=== PATIENT | male | born 1940 | race Hispanic/Latino ===

== ENCOUNTER 2018-10-23 18:24 | Inpatient (IN) | payer MEDICARE ==
[2018-10-23 19:11] LABS: Hematocrit 38.8 % (35.5-45.6); Mean Corpuscular HGB Conc 33 % (32-34); Mean Corpuscular Volume 93 fl (84-94); Platelet Count 164 K/mm3 (140-440); Red Blood Count 4.15 M/mm3 (3.65-5.03); Red Cell Distribution Width 15.4 % (13.2-15.2)
[2018-10-23 19:26] LABS: INR 1.19 (0.87-1.13)
[2018-10-23 19:27] LABS: Partial Thromboplastin Time 29.4 Sec. (24.2-36.6)
[2018-10-23] MEDS ORDERED: NACL 0.9% 1000 ML IV ONE (19:33)
[2018-10-23] MEDS ORDERED: CLEOCIN 600 MG/50 mL 600 MG/50 ML BAG IV SCH (19:33)
[2018-10-23 19:34] LABS: Alanine Aminotransferase 18 units/L (7-56); Albumin 3.2 g/dL (3.9-5); BUN/Creatinine Ratio 13; Blood Urea Nitrogen 14 mg/dL (9-20); Calcium 8.3 mg/dL (8.4-10.2); Hemolysis Index 10
[2018-10-23] MEDS ORDERED: NACL 0.9% 1000 ML 2,000 ML ONE (19:34)
--- NOTE | 2018-10-23 19:40 | Emergency Department Report ---
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 Patient recently had chemotherapy and normally will get some nausea and headache after the sessions however his right arm has "swell and has warmth and erythema. Patient has fallen several times in the last several weeks and has some healing scabs may be possible source of infection. Patient denies any vomiting diarrhea. Patient states he has a chronic cough that is unchanged from his previous. Patient states he has mild shortness of breath but is denying any productive cough or chest pain. Location: upper extremity (right) Severity scale (0 -10): 7 - Related Data Allergies Allergy/AdvReac Type Severity Reaction Status Date / Time No Known Allergies Allergy Verified 10/23/18 18:39 ED Review of Systems ROS: Stated complaint: SOB/FLU LIKE SYMPTOMS Other details as noted in HPI Comment: All other systems reviewed and negative ED Past Medical Hx - Past Medical History Previous Medical History?: Yes Hx Hypertension: Yes Hx Deep Vein Thrombosis: Yes (right leg) Hx of Cancer: Yes (prostate with mets to bone) Hx Kidney Stones: Yes Additional medical history: high cholesterol - Surgical History Past Surgical History?: Yes Hx Open Heart Surgery: Yes (CABG x3) Hx Appendectomy: Yes Additional Surgical History: right knee replacement, bilateral hip replacement - Social History Smoking Status: Former Smoker Substance Use Type: None ED Physical Exam - General Limitations: No Limitations General appearance: alert (pleasant), in no apparent distress - Head Head exam: Present: atraumatic, normocephalic - Eye Eye exam: Present: normal appearance, PERRL, EOMI - ENT ENT exam: Present: mucous membranes moist - Neck Neck exam: Present: normal inspection - Respiratory Respiratory exam: Present: normal lung sounds bilaterally. Absent: respiratory distress, wheezes, rales, rhonchi, chest wall tenderness, accessory muscle use - Cardiovascular Cardiovascular Exam: Present: normal rhythm, tachycardia, normal heart sounds. Absent: systolic murmur, diastolic murmur, rubs, gallop - GI/Abdominal GI/Abdominal exam: Present: soft, normal bowel sounds. Absent: distended, tenderness, guarding, rebound, rigid - Rectal Rectal exam: Present: deferred - Extremities Exam Extremities exam: Present: normal inspection, tenderness, joint swelling (patient's right upper extremity shows some warmth and erythema and induration to the skin from the mid upper arm to the wrist. This is nearly circumferential. There are also some large scabbed wounds present to have an upper lip drainage.) - Back Exam Back exam: Present: normal inspection - Neurological Exam Neurological exam: Present: alert, oriented X3 - Psychiatric Psychiatric exam: Present: normal affect, normal mood - Skin Skin exam: Present: warm, dry, intact, normal color. Absent: rash ED Course Vital Signs 10/23/18 10/23/18 10/23/18 18:30 19:40 20:01 Temperature 98.9 F Pulse Rate 98 H Respiratory 24 18 Rate Blood Pressure 88/56 106/64 O2 Sat by Pulse 94 96 Oximetry 10/23/18 20:16 Temperature Pulse Rate 97 H Respiratory 25 H Rate Blood Pressure 106/64 O2 Sat by Pulse Oximetry - Reevaluation(s) Reevaluation #1: 10/23/18 19:39 Patient is being sepsis protocol at this time. Patient's given a dose of clindamycin and will be hydrated. Labs will be interpreted once they have resulted. ED Medical Decision Making - Lab Data Result diagrams: 10/23/18 19:01 10/23/18 19:01 - EKG Data -: EKG Interpreted by Ia - EKG Data 10/23/18 19:39 EKG shows atrial fibrillation with a rate of 100. The axis is leftward intervals are otherwise normal. There is no ST segment elevations or depressions. Patient does show evidence of a right bundle branch block and a left anterior fascicular block. Time of interpretation is 1914 - Medical Decision Making Patient is a 78-year-old male who is on chemotherapy for prostate cancer was coming in for weakness headache as well as cellulitis to the right upper extremity. Patient laboratory studies are relatively unremarkable however because of the extensive nature of the cellulitis and the patient's immunocompromise state with the chemotherapy do believe it is warranted to at [facility] keep the patient for IV antibiotics. Patient's physician also is concerned that there may be a clot in his arm and DOPPLER CAN be done in the morning. Critical care attestation.: If time is entered above; I have spent that time in minutes in the direct care of this critically ill patient, excluding procedure time. ED Disposition Clinical Impression: Cellulitis Disposition: OP ADMIT IP TO THIS HOSP Is pt being admited?: Yes Does the pt Need Aspirin: No Condition: Stable Time of Disposition: 21:06
--- NOTE | 2018-10-23 19:56 | XRay Report ---
FINAL REPORT EXAM: XR CHEST ROUTINE 2V HISTORY: Shortness of breath TECHNIQUE: Two view chest PA and lateral PRIORS: None. FINDINGS: Exam is technically limited. The PA views are overpenetrated. Within the limits of the study the card iac and mediastinal contours are unremarkable. Sternotomy wires and surgical clips are noted. No foca l pulmonary infiltrate is identified. No pleural fluid collection seen. Pulmonary vasculature is unr emarkable. IMPRESSION: Technically limited exam No acute abnormality seen
[2018-10-23 21:02] LABS: Band Neutrophils # (Manual) 0.1 K/mm3; Basophils % (Manual) 0 % (0.0-1.8); Eosinophils % (Manual) 0 % (0.0-4.3); Total Cells Counted 100
[2018-10-23 21:03] LABS: Anisocytosis 1+; Poikilocytosis 1+
[2018-10-23 21:04] LABS: Giant Platelets Few; Ovalocytes 1+; Platelet Estimate Consistent w Auto; Tear Drop Cells Few
[2018-10-23] MEDS ORDERED: ULTRAM PO ONE (21:07)
[2018-10-23] MEDS ORDERED: SODIUM CHLORIDE FLUSH SYRINGE 10 ML IV PRN (21:44)
[2018-10-23] MEDS ORDERED: ZOFRAN IV PRN (21:44)
[2018-10-23] MEDS ORDERED: TYLENOL PO PRN (21:44)
--- NOTE | 2018-10-23 21:50 | History and Physical Report ---
History of Present Illness Date of examination: 10/23/18 History of present illness: 78-year-old male with a history of metastatic prostate cancer, hypertension, hyperlipidemia, coronary artery disease comes to emergency room complaining of nausea, chills, low-grade fever and was disoriented, although the symptoms start ed this morning. Daughter at bedside state that the patient obtain a shock from his oncologist on Thursday, they called the oncologist who state that the symptoms are secondary to the medication given. Patient also woke up this morning and found that the inner right arm was red and tender Review of systems Constitutional: no weight loss, chills Ears, eyes, nose, mouth and throat: no nasal congestion, no nasal discharge, no sinus pressure, no vision change, no red eye. Neck: No neck pain or rigidity. Cardiovascular: no palpitations, chest pain Respiratory: no cough, shortness of breath Gastrointestinal: no hematochezia, abdominal pain Genitourinary : no frequency , no hematuria Musculoskeletal: no joint swelling or muscle ache Integumentary: no rash, no pruritis Neurological: no parathesias, no focal weakness Endocrine: no cold or heat intolerance, no polyuria or polydipsia Hematologic/Lymphatic: no easy bruising, no easy bleeding, no gland swelling Allergic/Immunologic: no urticaria, no angioedema. PAST MEDICAL HISTORY: metastatic prostate cancer, hypertension, hyperlipidemia, coronary artery disease PAST SURGICAL HISTORY: CABG, bilateral hip, knee SOCIAL HISTORY: Denies alcohol, drugs, tobacco FAMILY HISTORY: Hypertension Medications and Allergies Allergies Allergy/AdvReac Type Severity Reaction Status Date / Time No Known Allergies Allergy Verified 10/23/18 18:39 Home Medications Medication Instructions Recorded Confirmed Last Taken Type Abiraterone Acetate [Zytiga] 250 mg PO QAM 10/23/18 10/23/18 Unknown History Amlodipine Besylate [Norvasc] 5 mg PO QDAY 10/23/18 10/23/18 Unknown History Aspirin 325 mg PO QDAY 10/23/18 10/23/18 Unknown History AtorvaSTATin [Lipitor] 40 mg PO QHS 10/23/18 10/23/18 Unknown History Escitalopram [Lexapro] 10 mg PO DAILY 10/23/18 10/23/18 Unknown History Losartan [Cozaar] 100 mg PO QDAY 10/23/18 10/23/18 Unknown History Metoprolol Xl [Metoprolol 50 mg PO QDAY 10/23/18 10/23/18 Unknown History SUCCINATE ER TAB] Virgie-3 Fatty Acids/Fish Oil [Fish 1,000 mg PO QDAY 10/23/18 10/23/18 Unknown History Oil] Ondansetron (Nf) [Zofran TAB] 4 mg PO Q8HR PRN 10/23/18 10/23/18 Unknown History predniSONE [Prednisone] 5 mg PO BID 10/23/18 10/23/18 Unknown History Active Meds: Active Medications Acetaminophen (Tylenol) 650 mg PO Q4H PRN PRN Reason: Pain MILD(1-3)/Fever >100.5/NORMAN Enoxaparin Sodium (Lovenox) 30 mg SUB-Q QDAY GIO Clindamycin HCl (Cleocin 600 Mg/50 Ml) 600 mg in 50 mls @ 100 mls/hr IV Q8HR GIO; Protocol Last Admin: 10/23/18 20:17 Dose: 100 mls/hr Documented by: Piperacillin Sod/Tazobactam Sod (Zosyn/Ns 4.5gm/100ml) 4.5 gm in 100 mls @ 200 mls/hr IV Q8HR GIO; Protocol Ondansetron HCl (Zofran) 4 mg IV Q4H PRN PRN Reason: Nausea And Vomiting Sodium Chloride (Sodium Chloride Flush Syringe 10 Ml) 10 ml IV BID GIO Sodium Chloride (Sodium Chloride Flush Syringe 10 Ml) 10 ml IV PRN PRN PRN Reason: LINE FLUSH Exam - Physical Exam Narrative exam: General Apperance: The patient lying in bed, breathing comfortable HEENT: Normocephalic, atraumatic. Pupils equally round and reactive to light, EOMI, no sclericterus or JVD or thyromegaly or nodule. , no carotid bruit, mucous membranes moist, no exudate or erythema Heart: S1-S2, regular is rhythm Lungs: Clear to auscultation bilaterally, breathing comfortable Abdomen: Positive bowel sounds, soft, nontender, nondistended, no organomegaly Extremities: No edema cyanosis clubbing Skin: Erythema of the medial right arm, tender to touch no rash, nodule, warm and dry Neuro: cranial nerves 2-12 intact, speech is fluent, motor/sensory intact - Constitutional Vitals: Temp Pulse Resp BP Pulse Ox 98.9 F 97 H 18 106/64 96 10/23/18 18:30 10/23/18 20:16 10/23/18 21:24 10/23/18 20:16 10/23/18 19:40 Results - Labs CBC & Chem 7: 10/23/18 19:01 10/23/18 19:01 Labs: Abnormal lab results 10/23/18 10/23/18 10/23/18 Range/Units 19:01 19:01 19:01 RDW 15.4 H (13.2-15.2) % Seg Neuts % (Manual) 78.0 H (40.0-70.0) % Seg Neutrophils # Man 8.5 H (1.8-7.7) K/mm3 PT 15.5 H (12.2-14.9) Sec. INR 1.19 H (0.87-1.13) Potassium 3.3 L (3.6-5.0) mmol/L Chloride 96.9 L (98-107) mmol/L Glucose 105 H (75-100) mg/dL Calcium 8.3 L (8.4-10.2) mg/dL Total Bilirubin 1.70 H (0.1-1.2) mg/dL Total Protein 6.0 L (6.3-8.2) g/dL Albumin 3.2 L (3.9-5) g/dL - Imaging and Cardiology EKG: image reviewed Chest x-ray: report reviewed Assessment and Plan Assessment Right arm cellulitis metastatic prostate cancer hypertension hyperlipidemia coronary artery disease Plan Admit to medicine Start IV Zosyn, follow cultures, Percocet for pain Doppler of the upper extremity dependent Continue appropriate outpatient medications DVT prophylaxis
[2018-10-23] MEDS ORDERED: PERCOCET 5/325 PO PRN (22:16)
[2018-10-24] MEDS: ZOSYN/NS 4.5GM/100ML 4.5 GM/100 ML VIAL IV SCH ×4 (00:20→21:55)
[2018-10-24] MEDS: SODIUM CHLORIDE FLUSH SYRINGE 10 ML IV SCH ×3 (00:21→21:56)
[2018-10-24] MEDS: PERCOCET 5/325 PO PRN ×2 (00:50→05:57)
[2018-10-24 03:08] LABS: BUN/Creatinine Ratio 17; Blood Urea Nitrogen 15 mg/dL (9-20); Calcium 7.4 mg/dL (8.4-10.2); Hemolysis Index 29
[2018-10-24 03:37] LABS: Basophils # (Auto) 0.1 K/mm3 (0.0-0.1); Eosinophils # (Auto) 0.1 K/mm3 (0.0-0.4); Hematocrit 33.4 % (35.5-45.6); Hemoglobin 11.2 gm/dl (11.8-15.2); Lymphocytes # (Auto) 2.1 K/mm3 (1.2-5.4); Lymphocytes % (Auto) 24.2 % (13.4-35.0); Mean Corpuscular HGB Conc 34 % (32-34); Mean Corpuscular Volume 93 fl (84-94); Monocytes # (Auto) 1.1 K/mm3 (0.0-0.8); Platelet Count 128 K/mm3 (140-440); Red Cell Distribution Width 14.8 % (13.2-15.2)
[2018-10-24] MEDS: ABIRATERONE ACETATE 1000 MG PO SCH (06:33)
[2018-10-24 07:17] LABS: Bilirubin,Urine NEG (Negative); Blood,Urine NEG (Negative); Color,Urine Amber (Yellow); Protein,Urine <15 mg/dL mg/dL (Negative); Urobilinogen,Urine < 2.0 mg/dL (<2.0)
--- NOTE | 2018-10-24 09:31 | Progress Note ---
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 Patient recently had chemotherapy and normally will get some nausea and headache after the sessions however his right arm has "swell and has warmth and erythema. Patient has fallen several times in the last several weeks and has some healing scabs may be possible source of infection. There was also conversation about the recent chemotherapy causing a reaction this is unclear. Patient was noted to be confused per the admitting documentation. Patient denies any vomiting diarrhea. Patient states he has a chronic cough that is unchanged from his previous. Patient states he has mild shortness of breath but is denying any productive cough or chest pain. Patient last treatment was seen by oncologist on Thursday Right arm cellulites Metastatic prostate cancer Metabolic Encephalopathy- Transient Hypertension- Hypotensive on admission Hyperlipidemia Hypokalemia Coronary artery disease Plan Continue supportive care Continue IV Zosyn, follow cultures, Percocet for pain Doppler of the upper extremity dependent Replace K Continue appropriate outpatient medications DVT prophylaxis History Interval history: Patient is seen today for: Cellulitis upper extremity shortness of breath Seen and examined at bedside; 24hour events reviewed; nursing staff ; no adverse overnight events reported to me; Denies any chest pain, nausea, vomiting, diarrhea. Reports some improvement. No fever noted blood pressure controlled Hospitalist Physical - Physical exam Narrative exam: VITAL SIGNS: Reviewed. GENERAL: The patient appeared well nourished and normally developed. Vital signs as documented. HEAD: No signs of head trauma. EYES: Pupils are equal. Extraocular motions intact. EARS: Hearing grossly intact. MOUTH: Oropharynx is normal. NECK: No adenopathy, no JVD. CHEST: Chest with expiratory wheeze bilaterally. No rales, or rhonchi. CARDIAC: Regular rate and rhythm. S1 and S2, without murmurs, gallops, or rubs. VASCULAR: No Edema. Peripheral pulses normal and equal in all extremities. ABDOMEN: Soft, without detectable tenderness. No sign of distention. No rebound or guarding, and no masses palpated. Bowel Sounds normal. MUSCULOSKELETAL: Good range of motion of all major joints. Extremities without clubbing, cyanosis or edema. NEUROLOGIC EXAM: Alert and oriented x 3. No focal sensory or strength deficits. Speech normal. Follows commands. PSYCHIATRIC: Mood normal. SKIN: Well-healed surgical scar. Multiple scars on the right upper extremity. Erythema is noted. - Constitutional Vitals: Temp Pulse Resp BP Pulse Ox 97.5 F L 88 20 95/61 94 10/24/18 07:50 10/24/18 07:50 10/24/18 07:50 10/24/18 07:50 10/24/18 07:50 Results - Labs CBC & Chem 7: 10/24/18 02:33 10/24/18 02:33 Labs: Laboratory Last Values WBC 8.8 K/mm3 (4.5-11.0) 10/24/18 02:33 RBC 3.60 M/mm3 (3.65-5.03) L 10/24/18 02:33 Hgb 11.2 gm/dl (11.8-15.2) L 10/24/18 02:33 Hct 33.4 % (35.5-45.6) L 10/24/18 02:33 MCV 93 fl (84-94) 10/24/18 02:33 MCH 31 pg (28-32) 10/24/18 02:33 MCHC 34 % (32-34) 10/24/18 02:33 RDW 14.8 % (13.2-15.2) 10/24/18 02:33 Plt Count 128 K/mm3 (140-440) L 10/24/18 02:33 Lymph % (Auto) 24.2 % (13.4-35.0) 10/24/18 02:33 [place] % (Auto) 12.0 % (0.0-7.3) H 10/24/18 02:33 Eos % (Auto) 1.0 % (0.0-4.3) 10/24/18 02:33 Baso % (Auto) [employer]ice 10/24/18 02:33 Lymph # 2.1 K/mm3 (1.2-5.4) 10/24/18 02:33 [place] # 1.1 K/mm3 (0.0-0.8) H 10/24/18 02:33 Eos # 0.1 K/mm3 (0.0-0.4) 10/24/18 02:33 Baso # 0.1 K/mm3 (0.0-0.1) 10/24/18 02:33 Add Manual Diff Complete 10/23/18 19:01 Total Counted 100 10/23/18 19:01 Seg Neutrophils % 61.9 % (40.0-70.0) 10/24/18 02:33 Seg Neuts % (Manual) 78.0 % (40.0-70.0) H 10/23/18 19:01 Band Neutrophils % 1.0 % 10/23/18 19:01 Lymphocytes % (Manual) 15.0 % (13.4-35.0) 10/23/18 19:01 Reactive Lymphs % (Man) 0 % 10/23/18 19:01 Monocytes % (Manual) 6.0 % (0.0-7.3) 10/23/18 19:01 Eosinophils % (Manual) 0 % (0.0-4.3) 10/23/18 19:01 Basophils % (Manual) 0 % (0.0-1.8) 10/23/18 19:01 Metamyelocytes % 0 % 10/23/18 19:01 Myelocytes % 0 % 10/23/18 19:01 Promyelocytes % 0 % 10/23/18 19:01 Blast Cells % 0 % 10/23/18 19:01 Nucleated RBC % Not Reportable 10/23/18 19:01 Seg Neutrophils # 5.4 K/mm3 (1.8-7.7) 10/24/18 02:33 Seg Neutrophils # Man 8.5 K/mm3 (1.8-7.7) H 10/23/18 19:01 Band Neutrophils # 0.1 K/mm3 10/23/18 19:01 Lymphocytes # (Manual) 1.6 K/mm3 (1.2-5.4) 10/23/18 19:01 Abs React Lymphs (Man) 0.0 K/mm3 10/23/18 19:01 Monocytes # (Manual) 0.7 K/mm3 (0.0-0.8) 10/23/18 19:01 Eosinophils # (Manual) 0.0 K/mm3 (0.0-0.4) 10/23/18 19:01 Basophils # (Manual) 0.0 K/mm3 (0.0-0.1) 10/23/18 19:01 Metamyelocytes # 0.0 K/mm3 10/23/18 19:01 Myelocytes # 0.0 K/mm3 10/23/18 19:01 Promyelocytes # 0.0 K/mm3 10/23/18 19:01 Blast Cells # 0.0 K/mm3 10/23/18 19:01 WBC Morphology Not Reportable 10/23/18 19:01 Hypersegmented Neuts Not Reportable 10/23/18 19:01 Hyposegmented Neuts Not Reportable 10/23/18 19:01 Hypogranular Neuts Not Reportable 10/23/18 19:01 Smudge Cells Not Reportable 10/23/18 19:01 Toxic Granulation Not Reportable 10/23/18 19:01 Toxic Vacuolation Not Reportable 10/23/18 19:01 Dohle Bodies Not Reportable 10/23/18 19:01 Pelger-Huet Anomaly Not Reportable 10/23/18 19:01 Cesar Rods Not Reportable 10/23/18 19:01 Platelet Estimate Consistent w auto 10/23/18 19:01 Clumped Platelets Not Reportable 10/23/18 19:01 Plt Clumps, EDTA Not Reportable 10/23/18 19:01 Large Platelets Not Reportable 10/23/18 19:01 Giant Platelets Few 10/23/18 19:01 Platelet Satelliting Not Reportable 10/23/18 19:01 Plt Morphology Comment Not Reportable 10/23/18 19:01 RBC Morphology Not Reportable 10/23/18 19:01 Dimorphic RBCs Not Reportable 10/23/18 19:01 Polychromasia Few 10/23/18 19:01 Hypochromasia Not Reportable 10/23/18 19:01 Poikilocytosis 1+ 10/23/18 19:01 Anisocytosis 1+ 10/23/18 19:01 Microcytosis Not Reportable 10/23/18 19:01 Macrocytosis Not Reportable 10/23/18 19:01 Spherocytes Not Reportable 10/23/18 19:01 Pappenheimer Bodies Not Reportable 10/23/18 19:01 Sickle Cells Not Reportable 10/23/18 19:01 Target Cells Not Reportable 10/23/18 19:01 Tear Drop Cells Few 10/23/18 19:01 Ovalocytes 1+ 01/12/19 19:01 Helmet Cells Not Reportable 10/23/18 19:01 [place] Bodies Not Reportable 10/23/18 19:01 [place] Rings Not Reportable 10/23/18 19:01 Golden Cells Not Reportable 10/23/18 19:01 Bite Cells Not Reportable 10/23/18 19:01 Crenated Cell Not Reportable 10/23/18 19:01 Elliptocytes Not Reportable 10/23/18 19:01 Acanthocytes (Spur) Not Reportable 10/23/18 19:01 Rouleaux Not Reportable 10/23/18 19:01 Hemoglobin C Crystals Not Reportable 10/23/18 19:01 Schistocytes Not Reportable 10/23/18 19:01 Malaria parasites Not Reportable 10/23/18 19:01 Magdi Bodies Not Reportable 10/23/18 19:01 Hem Pathologist Commnt No 10/23/18 19:01 PT 15.5 Sec. (12.2-14.9) H 10/23/18 19:01 INR 1.19 (0.87-1.13) H 10/23/18 19:01 APTT 29.4 Sec. (24.2-36.6) 10/23/18 19:01 Sodium 138 mmol/L (137-145) 10/24/18 02:33 Potassium 3.2 mmol/L (3.6-5.0) L 10/24/18 02:33 Chloride 100.0 mmol/L (98-107) 10/24/18 02:33 Carbon Dioxide 26 mmol/L (22-30) 10/24/18 02:33 Anion Gap 15 mmol/L 10/24/18 02:33 BUN 15 mg/dL (9-20) 10/24/18 02:33 Creatinine 0.9 mg/dL (0.8-1.5) 10/24/18 02:33 Estimated GFR > 60 ml/min 10/24/18 02:33 BUN/Creatinine Ratio 17 % 10/24/18 02:33 Glucose 90 mg/dL (75-100) 10/24/18 02:33 Lactic Acid 1.50 mmol/L (0.7-2.0) 10/23/18 23:13 Calcium 7.4 mg/dL (8.4-10.2) L 10/24/18 02:33 Total Bilirubin 1.70 mg/dL (0.1-1.2) H 10/23/18 19:01 AST 22 units/L (5-40) 10/23/18 19:01 ALT 18 units/L (7-56) 10/23/18 19:01 Alkaline Phosphatase 66 units/L (35-129) 10/23/18 19:01 Total Protein 6.0 g/dL (6.3-8.2) L 10/23/18 19:01 Albumin 3.2 g/dL (3.9-5) L 10/23/18 19:01 Albumin/Globulin Ratio 1.1 % 10/23/18 19:01 Urine Color Mar (Yellow) 10/24/18 Unknown Urine Turbidity Clear (Clear) 10/24/18 Unknown Urine pH 5.0 (5.0-7.0) 10/24/18 Unknown Ur Specific [place] 1.023 (1.003-1.030) 10/24/18 Unknown Urine Protein <15 mg/dl mg/dL (Negative) 10/24/18 Unknown Urine Glucose (UA) Neg mg/dL (Negative) 10/24/18 Unknown Urine Ketones Neg mg/dL (Negative) 10/24/18 Unknown Urine Blood Neg (Negative) 10/24/18 Unknown Urine Nitrite Neg (Negative) 10/24/18 Unknown Urine Bilirubin Neg (Negative) 10/24/18 Unknown Urine Urobilinogen < 2.0 mg/dL (<2.0) 10/24/18 Unknown Ur Leukocyte Esterase Neg (Negative) 10/24/18 Unknown Urine WBC (Auto) 1.0 /HPF (0.0-6.0) 10/24/18 Unknown Urine RBC (Auto) 1.0 /HPF (0.0-6.0) 10/24/18 Unknown U Epithel Cells (Auto) < 1.0 /HPF (0-13.0) 10/24/18 Unknown
[2018-10-24] MEDS ORDERED: POTASSIUM CHLORIDE PO ONE ×2 (09:39→14:00)
[2018-10-24] MEDS: LEXAPRO PO SCH (09:45)
[2018-10-24] MEDS: LOVENOX SUB-Q SCH (09:45)
[2018-10-24] MEDS: ASPIRIN PO SCH (09:45)
[2018-10-24] MEDS: FISH OIL PO SCH (09:45)
[2018-10-24] MEDS: DELTASONE PO SCH ×2 (09:45→21:56)
[2018-10-24] MEDS ORDERED: NORVASC PO SCH (10:00)
[2018-10-24] MEDS ORDERED: TOPROL XL PO SCH (10:00)
[2018-10-24] MEDS ORDERED: COZAAR PO SCH (10:00)
[2018-10-25] MEDS ORDERED: DULCOLAX PO PRN (04:43)
[2018-10-25] MEDS: ZOSYN/NS 4.5GM/100ML 4.5 GM/100 ML VIAL IV SCH ×2 (05:19→15:15)
[2018-10-25] MEDS: PERCOCET 5/325 PO PRN ×2 (05:20→07:28)
[2018-10-25] MEDS: ABIRATERONE ACETATE 1000 MG PO SCH (05:21)
[2018-10-25] MEDS: LEXAPRO PO SCH (11:49)
[2018-10-25] MEDS: ASPIRIN PO SCH (11:49)
[2018-10-25] MEDS: FISH OIL PO SCH (11:49)
[2018-10-25] MEDS: DELTASONE PO SCH ×2 (11:50→22:03)
[2018-10-25] MEDS: LOVENOX SUB-Q SCH (11:50)
--- NOTE | 2018-10-25 14:41 | Vascular Lab Report ---
FINAL REPORT EXAM: VL VENOUS DUPLEX UE RT HISTORY: swelling and pain, hx cancer TECHNIQUE: [place] scale with color flow and spectral waveform Doppler imaging of right upper extremity veins. PRIORS: None. FINDINGS: There is no evidence of deep venous thrombosis in the right upper extremity. Flow is demonstrated by color flow and spectral waveform Doppler imaging. There is appropriate augmentation and wall compression. IMPRESSION: There is no evidence for DVT in the right upper extremity.
[2018-10-25] MEDS: SODIUM CHLORIDE FLUSH SYRINGE 10 ML IV SCH ×2 (15:16→22:04)
[2018-10-25] MEDS ORDERED: POTASSIUM CHLORIDE PO ONE (16:54)
--- NOTE | 2018-10-25 16:57 | Progress Note ---
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 Patient recently had chemotherapy and normally will get some nausea and headache after the sessions however his right arm has "swell and has warmth and erythema. Patient has fallen several times in the last several weeks and has some healing scabs may be possible source of infection. There was also conversation about the recent chemotherapy causing a reaction this is unclear. Patient was noted to be confused per the admitting documentation. Patient denies any vomiting diarrhea. Patient states he has a chronic cough that is unchanged from his previous. Patient states he has mild shortness of breath but is denying any productive cough or chest pain. Patient last treatment was seen by oncologist on Thursday Right arm cellulites Metastatic prostate cancer Metabolic Encephalopathy- Transient Hypertension- Hypotensive on admission Hyperlipidemia Hypokalemia Coronary artery disease Plan Continue supportive care Change from IV zosyn to kaflex, follow cultures, Percocet for pain Ultrasound negative for dvt Doppler of the upper extremity dependent Replace K Continue appropriate outpatient medications DVT prophylaxis Patient declines SNF and will proceed to Home with Home health if stable in AM. History Interval history: Patient is seen today for: Cellulitis upper extremity shortness of breath Seen and examined at bedside; 24hour events reviewed; nursing staff ; no adverse overnight events reported to me; Denies any chest pain, nausea, vomiting, diarrhea. Reports some improvement. swelling in right upper ext is improving. No fever noted blood pressure controlled Hospitalist Physical - Physical exam Narrative exam: VITAL SIGNS: Reviewed. GENERAL: The patient appeared well nourished and normally developed. Vital signs as documented. HEAD: No signs of head trauma. EYES: Pupils are equal. Extraocular motions intact. EARS: Hearing grossly intact. MOUTH: Oropharynx is normal. NECK: No adenopathy, no JVD. CHEST: Chest with expiratory wheeze bilaterally, improved. No rales, or rhonchi. CARDIAC: Regular rate and rhythm. S1 and S2, without murmurs, gallops, or rubs. VASCULAR: No Edema. Peripheral pulses normal and equal in all extremities. ABDOMEN: Soft, without detectable tenderness. No sign of distention. No rebound or guarding, and no masses palpated. Bowel Sounds normal. MUSCULOSKELETAL: Good range of motion of all major joints. Extremities without clubbing, cyanosis or edema. NEUROLOGIC EXAM: Alert and oriented x 3. No focal sensory or strength deficits. Speech normal. Follows commands. PSYCHIATRIC: Mood normal. SKIN: Well-healed surgical scar. Multiple scars on the right upper extremity. Erythema is noted. - Constitutional Vitals: Temp Pulse Resp BP Pulse Ox 97.7 F 108 H 20 118/70 93 10/25/18 13:19 10/25/18 13:19 10/25/18 13:19 10/25/18 13:10/25/18 13: Results - Labs CBC & Chem 7: 10/24/18 02:33 10/24/18 02:33 Labs: Laboratory Last Values WBC 8.8 K/mm3 (4.5-11.0) 10/24/18 02:33 RBC 3.60 M/mm3 (3.65-5.03) L 10/24/18 02:33 Hgb 11.2 gm/dl (11.8-15.2) L 10/24/18 02:33 Hct 33.4 % (35.5-45.6) L 10/24/18 02:33 MCV 93 fl (84-94) 10/24/18 02:33 MCH 31 pg (28-32) 10/24/18 02:33 MCHC 34 % (32-34) 10/24/18 02:33 RDW 14.8 % (13.2-15.2) 10/24/18 02:33 Plt Count 128 K/mm3 (140-440) L 10/24/18 02:33 Lymph % (Auto) 24.2 % (13.4-35.0) 10/24/18 02:33 [place] % (Auto) 12.0 % (0.0-7.3) H 10/24/18 02:33 Eos % (Auto) 1.0 % (0.0-4.3) 10/24/18 02:33 Baso % (Auto) Fudge Candy Maker 10/24/18 02:33 Lymph # 2.1 K/mm3 (1.2-5.4) 10/24/18 02:33 [place] # 1.1 K/mm3 (0.0-0.8) H 10/24/18 02:33 Eos # 0.1 K/mm3 (0.0-0.4) 10/24/18 02:33 Baso # 0.1 K/mm3 (0.0-0.1) 10/24/18 02:33 Add Manual Diff Complete 10/23/18 19:01 Total Counted 100 10/23/18 19:01 Seg Neutrophils % 61.9 % (40.0-70.0) 10/24/18 02:33 Seg Neuts % (Manual) 78.0 % (40.0-70.0) H 10/23/18 19:01 Band Neutrophils % 1.0 % 10/23/18 19:01 Lymphocytes % (Manual) 15.0 % (13.4-35.0) 10/23/18 19:01 Reactive Lymphs % (Man) 0 % 10/23/18 19:01 Monocytes % (Manual) 6.0 % (0.0-7.3) 10/23/18 19:01 Eosinophils % (Manual) 0 % (0.0-4.3) 10/23/18 19:01 Basophils % (Manual) 0 % (0.0-1.8) 10/23/18 19:01 Metamyelocytes % 0 % 10/23/18 19:01 Myelocytes % 0 % 10/23/18 19:01 Promyelocytes % 0 % 10/23/18 19:01 Blast Cells % 0 % 10/23/18 19:01 Nucleated RBC % Not Reportable 10/23/18 19:01 Seg Neutrophils # 5.4 K/mm3 (1.8-7.7) 10/24/18 02:33 Seg Neutrophils # Man 8.5 K/mm3 (1.8-7.7) H 10/23/18 19:01 Band Neutrophils # 0.1 K/mm3 10/23/18 19:01 Lymphocytes # (Manual) 1.6 K/mm3 (1.2-5.4) 10/23/18 19:01 Abs React Lymphs (Man) 0.0 K/mm3 10/23/18 19:01 Monocytes # (Manual) 0.7 K/mm3 (0.0-0.8) 10/23/18 19:01 Eosinophils # (Manual) 0.0 K/mm3 (0.0-0.4) 10/23/18 19:01 Basophils # (Manual) 0.0 K/mm3 (0.0-0.1) 10/23/18 19:01 Metamyelocytes # 0.0 K/mm3 10/23/18 19:01 Myelocytes # 0.0 K/mm3 10/23/18 19:01 Promyelocytes # 0.0 K/mm3 10/23/18 19:01 Blast Cells # 0.0 K/mm3 10/23/18 19:01 WBC Morphology Not Reportable 10/23/18 19:01 Hypersegmented Neuts Not Reportable 10/23/18 19:01 Hyposegmented Neuts Not Reportable 10/23/18 19:01 Hypogranular Neuts Not Reportable 10/23/18 19:01 Smudge Cells Not Reportable 10/23/18 19:01 Toxic Granulation Not Reportable 10/23/18 19:01 Toxic Vacuolation Not Reportable 10/23/18 19:01 Dohle Bodies Not Reportable 10/23/18 19:01 Pelger-Huet Anomaly Not Reportable 10/23/18 19:01 Cesar Rods Not Reportable 10/23/18 19:01 Platelet Estimate Consistent w auto 10/23/18 19:01 Clumped Platelets Not Reportable 10/23/18 19:01 Plt Clumps, EDTA Not Reportable 10/23/18 19:01 Large Platelets Not Reportable 10/23/18 19:01 Giant Platelets Few 10/23/18 19:01 Platelet Satelliting Not Reportable 10/23/18 19:01 Plt Morphology Comment Not Reportable 10/23/18 19:01 RBC Morphology Not Reportable 10/23/18 19:01 Dimorphic RBCs Not Reportable 10/23/18 19:01 Polychromasia Few 10/23/18 19:01 Hypochromasia Not Reportable 10/23/18 19:01 Poikilocytosis 1+ 10/23/18 19:01 Anisocytosis 1+ 10/23/18 19:01 Microcytosis Not Reportable 10/23/18 19:01 Macrocytosis Not Reportable 10/23/18 19:01 Spherocytes Not Reportable 10/23/18 19:01 Pappenheimer Bodies Not Reportable 10/23/18 19:01 Sickle Cells Not Reportable 10/23/18 19:01 Target Cells Not Reportable 10/23/18 19:01 Tear Drop Cells Few 10/23/18 19:01 Ovalocytes 1+ 10/23/18 19:01 Helmet Cells Not Reportable 10/23/18 19:01 [place] Bodies Not Reportable 10/23/18 19:01 Mcintosh Rings Not Reportable 10/23/18 19:01 Golden Cells Not Reportable 10/23/18 19:01 Bite Cells Not Reportable 10/23/18 19:01 Crenated Cell Not Reportable 10/23/18 19:01 Elliptocytes Not Reportable 10/23/18 19:01 Acanthocytes (Spur) Not Reportable 10/23/18 19:01 Rouleaux Not Reportable 10/23/18 19:01 Hemoglobin C Crystals Not Reportable 10/23/18 19:01 Schistocytes Not Reportable 10/23/18 19:01 Malaria parasites Not Reportable 10/23/18 19:01 Magdi Bodies Not Reportable 10/23/18 19:01 Hem Pathologist Commnt No 10/23/18 19:01 PT 15.5 Sec. (12.2-14.9) H 10/23/18 19:01 INR 1.19 (0.87-1.13) H 10/23/18 19:01 APTT 29.4 Sec. (24.2-36.6) 10/23/18 19:01 Sodium 138 mmol/L (137-145) 10/24/18 02:33 Potassium 3.2 mmol/L (3.6-5.0) L 10/24/18 02:33 Chloride 100.0 mmol/L (98-107) 10/24/18 02:33 Carbon Dioxide 26 mmol/L (22-30) 10/24/18 02:33 Anion Gap 15 mmol/L 10/24/18 02:33 BUN 15 mg/dL (9-20) 10/24/18 02:33 Creatinine 0.9 mg/dL (0.8-1.5) 10/24/18 02:33 Estimated GFR > 60 ml/min 10/24/18 02:33 BUN/Creatinine Ratio 17 % 10/24/18 02:33 Glucose 90 mg/dL (75-100) 10/24/18 02:33 Lactic Acid 1.50 mmol/L (0.7-2.0) 10/23/18 23:13 Calcium 7.4 mg/dL (8.4-10.2) L 10/24/18 02:33 Total Bilirubin 1.70 mg/dL (0.1-1.2) H 10/23/18 19:01 AST 22 units/L (5-40) 10/23/18 19:01 ALT 18 units/L (7-56) 10/23/18 19:01 Alkaline Phosphatase 66 units/L (35-129) 10/23/18 19:01 Total Protein 6.0 g/dL (6.3-8.2) L 10/23/18 19:01 Albumin 3.2 g/dL (3.9-5) L 10/23/18 19:01 Albumin/Globulin Ratio 1.1 % 10/23/18 19:01 Urine Color Mar (Yellow) 10/24/18 Unknown Urine Turbidity Clear (Clear) 10/24/18 Unknown Urine pH 5.0 (5.0-7.0) 10/24/18 Unknown Ur Specific [place] 1.023 (1.003-1.030) 10/24/18 Unknown Urine Protein <15 mg/dl mg/dL (Negative) 10/24/18 Unknown Urine Glucose (UA) Neg mg/dL (Negative) 10/24/18 Unknown Urine Ketones Neg mg/dL (Negative) 10/24/18 Unknown Urine Blood Neg (Negative) 10/24/18 Unknown Urine Nitrite Neg (Negative) 10/24/18 Unknown Urine Bilirubin Neg (Negative) 10/24/18 Unknown Urine Urobilinogen < 2.0 mg/dL (<2.0) 10/24/18 Unknown Ur Leukocyte Esterase Neg (Negative) 10/24/18 Unknown Urine WBC (Auto) 1.0 /HPF (0.0-6.0) 10/24/18 Unknown Urine RBC (Auto) 1.0 /HPF (0.0-6.0) 10/24/18 Unknown U Epithel Cells (Auto) < 1.0 /HPF (0-13.0) 10/24/18 Unknown
[2018-10-25] MEDS: KEFLEX PO SCH (17:52)
[2018-10-26] MEDS: KEFLEX PO SCH ×2 (00:25→06:18)
[2018-10-26] MEDS: ABIRATERONE ACETATE 1000 MG PO SCH (06:17)
[2018-10-26 08:37] VITALS: BP 174/101
--- NOTE | 2018-10-26 09:48 | Discharge Summary ---
Providers - Providers Date of Admission: 10/23/18 21:44 Date of discharge: 10/26/18 Attending physician: PHILOMENA GARDNER MD Primary care physician: [facility] Hospitalization Reason for admission: Right upper extremity cellulitis Condition: Stable Pertinent studies: Doppler U/s of the upper extreimty; negative for DVT. 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 Patient recently had chemotherapy and normally will get some nausea and headache after the sessions however his right arm has "swell and has warmth and erythema. Patient has fallen several times in the last several weeks and has some healing scabs may be possible source of infection. There was also conversation about the recent chemotherapy causing a reaction this is unclear. Patient was noted to be confused per the admitting documentation. Patient denies any vomiting diarrhea. Patient states he has a chronic cough that is unchanged from his previous. Patient states he has mild shortness of breath but is denying any productive cough or chest pain. Patient last treatment was seen by oncologist on Thursday. Right arm cellulites; patient was treated with IV antibiotics and will continue with PO at the time of discharge. Doppler negative for DVT. Metastatic prostate cancer; continue to follow with oncologist. Metabolic Encephalopathy- patient was alert and oriented; I didn't see any confusion. Hypertension- Hypotensive on admission, and was given Iv fluids. Hypokalemia; repleted and corrected. Coronary artery disease; stable continue O/P medications. Frequent fall; patient declined SNF, home health. Disposition: - TO HOME OR SELFCARE Time spent for discharge: 34 minutes - Discharge Diagnoses (1) Cellulitis Status: Acute Core Measure Documentation - Palliative Care Palliative Care/ Comfort Measures: Not Applicable - Core Measures Any of the following diagnoses?: none Exam - Physical Exam Narrative exam: Not in cardiopulmonary distress. The patient is obese. Vital signs as documented. Head exam is unremarkable. No scleral icterus . Neck is without jugular venous distension, thyromegaly, or carotid bruits. Lungs are clear to auscultation. Cardiac exam reveals regular rate and Rhythm. First and second heart sounds normal. No murmurs, rubs or gallops. Abdominal exam reveals normal bowel sounds, no masses, no organomegaly and no aortic enlargement. Extremities are scabs on the right upper extremity. MDM SR: Alert and oriented 3. No focal weakness. - Constitutional Vitals: Temp Pulse Resp BP Pulse Ox 98.6 F 99 H 20 174/101 96 10/26/18 07:17 10/26/18 08:37 10/26/18 07:17 10/26/18 07:17 10/26/18 08:37 Plan Activity: advance as tolerated Weight Bearing Status: Full Weight Bearing Diet: low cholesterol, low salt Additional Instructions: F/u at [facility] [address] in 1-2 weeks. Follow up with: PRIMARY CARE, [Primary Care Provider] - 3-5 Days Prescriptions: Cephalexin [Keflex] 500 mg PO Q6H #20 capsule
[2018-10-26] MEDS: DELTASONE PO SCH (09:51)
[2018-10-26] MEDS: PERCOCET 5/325 PO PRN (09:51)
[2018-10-26] MEDS: FISH OIL PO SCH (09:51)
[2018-10-26] MEDS: ASPIRIN PO SCH (09:52)
[2018-10-26] MEDS: LOVENOX SUB-Q SCH (09:52)
[2018-10-26] MEDS: LEXAPRO PO SCH (09:55)
== END 2018-10-26 11:00 | disposition home or self-care (01) | DRG 602 ==
LOC: ED 18:24 → 2B-ACE 21:44
PROVIDERS: ADMIT Internal Medicine; ATTEND Internal Medicine
DX: L03.113 Cellulitis of right upper limb (principal); G93.41 Metabolic encephalopathy; C79.51 Secondary malignant neoplasm of bone; I95.9 Hypotension, unspecified; C61 Malignant neoplasm of prostate; I10 Essential (primary) hypertension; E78.5 Hyperlipidemia, unspecified; I25.10 Atherosclerotic heart disease of native coronary artery without angina pectoris; Z95.1 Presence of aortocoronary bypass graft; Z82.49 Family history of ischemic heart disease and other diseases of the circulatory system; Z96.643 Presence of artificial hip joint, bilateral; Z87.891 Personal history of nicotine dependence
CPT/HCPCS: 36415; 71046; 80048; 80053; 81001; 82140; 85007; 85025; 85610; 85730; 87040; 87116; 93005; 93010; 94760; 96374; G0378; A9270-GY; J1650; J2543; J7030; J7512

== ENCOUNTER 2018-11-09 16:39 | Emergency (ER) | payer MEDICARE ==
[2018-11-09] MEDS ORDERED: MORPHINE IV ONE ×2 (17:11→21:27)
[2018-11-09] MEDS ORDERED: ZOFRAN IV ONE ×2 (17:11→21:28)
[2018-11-09 17:42] LABS: Hematocrit 33.8 % (35.5-45.6); Hemoglobin 11.3 gm/dl (11.8-15.2); Mean Corpuscular HGB Conc 34 % (32-34); Mean Corpuscular Volume 91 fl (84-94); Platelet Count 209 K/mm3 (140-440); Red Blood Count 3.72 M/mm3 (3.65-5.03)
--- NOTE | 2018-11-09 17:51 | Emergency Department Report ---
HPI - General Chief Complaint: Fall Time Seen by Provider: 11/09/18 17:03 - HPI HPI: 78-year-old male presents to the emergency department via EMS from home with complaint of pain to the left shoulder, left side of his abdomen, and the left leg that has been going on since he had a fall yesterday. The patient was helping carry some groceries into the house and ended up falling onto his left side onto the corner of an entertainment center/unit. He denies hitting his head or any loss of consciousness. He went to [facility] after the fall and says that he had some x-rays done that showed a left shoulder or upper humerus fracture. He was placed in a sling and sent home with some pain medication. However the pain medication, oxycodone, makes him very nauseated and otherwise does not help. He also has been having some increasing left lower extremity pain and he says that it was not imaged. Patient has a history of stage IV prostate cancer. ED Past Medical Hx - Past Medical History Hx Hypertension: Yes Hx Deep Vein Thrombosis: Yes (right leg) Hx Kidney Stones: Yes Additional medical history: high cholesterol - Surgical History Hx Open Heart Surgery: Yes (CABG x3) Hx Appendectomy: Yes Additional Surgical History: right knee replacement, bilateral hip replacement - Social History Smoking Status: Never Smoker - Medications Home Medications: Home Medications Medication Instructions Recorded Confirmed Last Taken Type Abiraterone Acetate [Zytiga] 250 mg PO QAM 10/23/18 10/23/18 Unknown History Amlodipine Besylate [Norvasc] 5 mg PO QDAY 10/23/18 10/23/18 Unknown History Aspirin 325 mg PO QDAY 10/23/18 10/23/18 Unknown History AtorvaSTATin [Lipitor] 40 mg PO QHS 10/23/18 10/23/18 Unknown History Escitalopram [Lexapro] 10 mg PO DAILY 10/23/18 10/23/18 Unknown History Losartan [Cozaar] 100 mg PO QDAY 10/23/18 10/23/18 Unknown History Metoprolol Xl [Metoprolol 50 mg PO QDAY 10/23/18 10/23/18 Unknown History SUCCINATE ER TAB] [place]-3 Fatty Acids/Fish Oil [Fish 1,000 mg PO QDAY 10/23/18 10/23/18 Unknown History Oil] Ondansetron (Nf) [Zofran TAB] 4 mg PO Q8HR PRN 10/23/18 10/23/18 Unknown History predniSONE [Prednisone] 5 mg PO BID 10/23/18 10/23/18 Unknown History Cephalexin [Keflex] 500 mg PO Q6H #20 capsule 10/26/18 Unknown Rx ED Review of Systems ROS: Stated complaint: FALL/LEFT SIDE PAIN/NAUSEA Other details as noted in HPI Comment: All other systems reviewed and negative Constitutional: denies: chills, fever Eyes: denies: eye pain, vision change ENT: denies: ear pain, throat pain Respiratory: denies: cough, shortness of breath Cardiovascular: denies: chest pain, palpitations Gastrointestinal: abdominal pain. denies: vomiting Genitourinary: denies: dysuria, discharge Musculoskeletal: arthralgia, myalgia. denies: back pain Skin: denies: rash, lesions Neurological: denies: headache, numbness Physical Exam - Physical Exam Physical Exam: GENERAL: The patient is well-developed well-nourished. HEENT: Normocephalic. Atraumatic. Patient has moist mucous membranes. EYES: Extraocular motions are intact. Pupils are equal and reactive to light bilaterally. NECK: Supple. Trachea is midline. CHEST/LUNGS: Clear to auscultation. There is no respiratory distress noted. There is some left lateral chest/rib tenderness to palpation. No crepitus. HEART/CARDIOVASCULAR: Regular. There is no tachycardia. There is no obvious murmur. ABDOMEN: Abdomen is soft. There is some left sided abdominal tenderness to palpation. No guarding. Patient has normal bowel sounds. There is no abdominal distention. SKIN: Skin is warm and dry. Patient has some right hand abrasions. NEURO: The patient is awake, alert, and cooperative. The patient has no focal neurologic deficits. The patient has normal speech. MUSCULOSKELETAL: Tenderness to palpation to the left proximal humerus and shoulder. There is tenderness to palpation to the left knee and up towards the mid thigh. There is no limitation range of motion. There is no evidence of acute injury. ED Course - Consultations Consultation #1: 11/09/18 20:28 I spoke with the general surgeon biodiesel process control technician, Dr. Ely, regarding the patient's multiple consecutive rib fractures. He has the recommendation of transfer to a facility that has a trauma team as given this patient's advanced age and comorbidities, there is concern that the patient may have worsening of his respiratory status and needs close monitoring. I spoke with [facility] and the patient was accepted for transfer to the ER by the trauma attending, Dr. Munoz. ED Medical Decision Making - Lab Data Result diagrams: 11/09/18 17:21 11/09/18 17:21 - Radiology Data Radiology results: report reviewed, image reviewed interpreted by me: X-ray of the left humerus shows a proximal humerus fracture. No dislocation. X-ray of the left hip and left femur do not show any fracture, dislocations or any acute processes. X-ray of the left hand and wrist do not show any fracture, dislocation or any acute process. Chest x-ray shows rib fractures on the left side of ribs 4-8. No pneumothorax. EXAM: CT ABDOMEN PELVIS W CON HISTORY: left sided abdominal pain, trauma TECHNIQUE: Helical CT scan through the abdomen and pelvis during intravenous injection of iodinated contrast. Images are reconstructed in the sagittal and coronal planes. Oral contrast was not given. PRIORS: None. FINDINGS: Images through the lung bases show small bilateral pleural effusions and bibasilar subsegmental atelectasis. There are multiple sternotomy wires. The liver, gallbladder, pancreas, spleen and adrenal glands appear normal. There are bilateral renal calcifications most likely vascular in nature. Otherwise, the kidneys appear grossly normal. The visualized pelvic organs appear grossly normal. The stomach appears grossly within normal limits. There are no abnormally dilated loops of bowel or acute inflammatory changes. The appendix is not discretely visualized but there are no inflammatory changes in the right lower quadrant around the area of the cecum. There is diffuse atherosclerotic calcification of the abdominal aorta and iliac and femoral arteries. There is a 4.1 cm infrarenal abdominal aortic aneurysm. There is a nondisplaced fracture of the left lateral iliac bone. There are nondisplaced fractures of the 6th, 7th and 8th lateral ribs. The ribs were not entirely included in the scan range. There are multiple old right rib fractures. There are numerous osseous sclerotic lesion, specifically in the left 8th posterior rib, the left sacrum, the bilateral pubic bones, the right iliac bone near the SI joint and the T10 vertebral body. There is multilevel advanced degenerative disc disease of the lumbar spine. There are bilateral hip prostheses. IMPRESSION: 1. Acute nondisplaced fracture of the left lateral iliac bone 2. Acute fractures of the left 6th, 7th and 8th lateral ribs. The ribs are not entirely included in the scan range. 3. Multiple sclerotic osseous lesions suspicious for metastatic disease. Please correlate with clinical history. 4. Bibasilar subsegmental atelectasis and small bilateral pleural effusions. 5. Extensive atherosclerosis and a 4.1 cm infrarenal abdominal aortic aneurysm. 6. No evidence of solid organ injury. Transcribed By: HOLLI Dictated By: JUS FREY MD Electronically Authenticated By: JUS FREY MD Signed Date/Time: 11/09/181952 - Medical Decision Making The patient presents to the emergency department with complaint of left-sided abdominal pain, right hand pain, left knee and leg pain, and some pain towards the left lower rib cage after a fall yesterday. X-rays were done of the right hand, right wrist, left tib-fib, left femur, left humerus that ultimately showed a left proximal humerus fracture. A CT scan of the abdomen and pelvis was done that did not show any intra-abdominal or pelvic pathology but did show some bony metastasis from his prostate cancer, a left iliac fracture, and rib fractures 6 through 8 on the left side. At this point a chest x-ray was also done and I believe the fifth rib is also fractured but no pneumothorax. Labs have been unremarkable. The patient's pulse ox goes down if he is laying flat. General surgery was contacted and feels that the patient needs to go to a trauma center. The patient was accepted for transfer to the [place] [facility] by the trauma attending, Dr. Munoz. - Differential Diagnosis fracture, contusion, sprain, strain, pneumothorax Critical Care Time: No Critical care attestation.: If time is entered above; I have spent that time in minutes in the direct care of this critically ill patient, excluding procedure time. ED Disposition Clinical Impression: Closed fracture of left proximal humerus Qualifiers: Encounter type: initial encounter Fracture morphology: unspecified fracture morphology Qualified Code(s): S42.202A - Unspecified fracture of upper end of left humerus, initial encounter for closed fracture Fracture of left ilium Qualifiers: Encounter type: initial encounter Fracture type: closed Fracture morphology: unspecified fracture morphology Fracture alignment: nondisplaced Qualified Code(s): S32.302A - Unspecified fracture of left ilium, initial encounter for closed fracture Multiple rib fractures Qualifiers: Encounter type: initial encounter Fracture type: closed Laterality: left Qualified Code(s): S22.42XA - Multiple fractures of ribs, left side, initial encounter for closed fracture Fall Qualifiers: Encounter type: initial encounter Qualified Code(s): W19.XXXA - Unspecified fall, initial encounter Disposition: DC/TX-70 ANOTHER TYPE HLTHCARE Is pt being admited?: No Condition: Fair Referrals: EMILIANO BROOKS MD [Primary Care Provider] - 3-5 Days Time of Disposition: 20:30
[2018-11-09 17:53] LABS: BUN/Creatinine Ratio 18; Blood Urea Nitrogen 14 mg/dL (9-20); Hemolysis Index 19
[2018-11-09 18:32] LABS: RBC Morphology Normal; Total Cells Counted 100
--- NOTE | 2018-11-09 19:21 | XRay Report ---
FINAL REPORT EXAM: XR HUMERUS 2+V LT HISTORY: Trauma TECHNIQUE: Three views of the left humerus PRIORS: None. FINDINGS: The bones are normally aligned and diffusely demineralized. The acromioclavicular and glenohumeral olimpia ints are normally aligned. There is a lucency extending through the greater tuberosity most likely re presenting an acute fracture, less likely chronic calcific tendinitis. There is a cortical irregulari ty along the medial side of the proximal humerus that may also be chronic.. The soft tissues are unre markable. IMPRESSION: Question proximal humeral fractures versus chronic changes. Recommend further evaluation with CT.
--- NOTE | 2018-11-09 19:24 | XRay Report ---
FINAL REPORT EXAM: XR FEMUR 2+V LT HISTORY: Trauma TECHNIQUE: AP and lateral views of the left femur PRIORS: None. FINDINGS: The bones are normally aligned and diffusely demineralized. There is a left hip prosthesis. There is tricompartmental osteoarthrosis of the knee. There is diffuse atherosclerotic calcification. There is no evidence of fracture or subluxation. The soft tissues are unremarkable. IMPRESSION: No evidence of acute injury.
--- NOTE | 2018-11-09 19:25 | XRay Report ---
FINAL REPORT EXAM: XR TIBIA FIBULA 2V LT HISTORY: Trauma TECHNIQUE: AP and lateral views of the left tibia fibula PRIORS: None. FINDINGS: The bones are normally aligned and and diffusely demineralized. There is no evidence of fracture or s ubluxation. There is diffuse atherosclerotic calcification. IMPRESSION: No evidence of acute injury.
--- NOTE | 2018-11-09 19:26 | XRay Report ---
FINAL REPORT EXAM: XR HAND 3+V LT HISTORY: Trauma TECHNIQUE: Four views of the left hand PRIORS: None. FINDINGS: The bones are normally aligned and diffusely demineralized. 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 Otherwise, joint spaces are well-preserved. There is no evidence of acute fract ure. There is diffuse atherosclerotic calcification. There are surgical clips in the lateral side of the wrist. IMPRESSION: No evidence of acute fracture or subluxation.
--- NOTE | 2018-11-09 19:28 | XRay Report ---
FINAL REPORT EXAM: XR WRIST 3+V LT HISTORY: left wrist pain TECHNIQUE: Three views of the left wrist PRIORS: None. FINDINGS: The bones are normally aligned and diffusely demineralized. 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 Otherwise, the joint spaces are well-preserved. There is no evidence of acute f racture. There is diffuse atherosclerotic calcification. There are multiple surgical clips along the lateral side of the wrist. IMPRESSION: No evidence of acute fracture or subluxation.
--- NOTE | 2018-11-09 19:53 | Cat Scan Report ---
FINAL REPORT EXAM: CT ABDOMEN PELVIS W CON HISTORY: left sided abdominal pain, trauma TECHNIQUE: Helical CT scan through the abdomen and pelvis during intravenous injection of iodinated contrast. Images are reconstructed in the sagittal and coronal planes. Oral contrast was not given. PRIORS: None. FINDINGS: Images through the lung bases show small bilateral pleural effusions and bibasilar subsegmental atele ctasis. There are multiple sternotomy wires. The liver, gallbladder, pancreas, spleen and adrenal glands appear normal. There are bilateral renal calcifications most likely vascular in nature. Otherwise, the kidneys appea r grossly normal. The visualized pelvic organs appear grossly normal. The stomach appears grossly within normal limits. There are no abnormally dilated loops of bowel or acute inflammatory changes. The appendix is not dis cretely visualized but there are no inflammatory changes in the right lower quadrant around the area of the cecum. There is diffuse atherosclerotic calcification of the abdominal aorta and iliac and femoral arteries. There is a 4.1 cm infrarenal abdominal aortic aneurysm. There is a nondisplaced fracture of the left lateral iliac bone. There are nondisplaced fractures of the 6th, 7th and 8th lateral ribs. The ribs were not entirely included in the scan range. There are m ultiple old right rib fractures. There are numerous osseous sclerotic lesion, specifically in the left 8th posterior rib, the left sac rum, the bilateral pubic bones, the right iliac bone near the SI joint and the T10 vertebral body. There is multilevel advanced degenerative disc disease of the lumbar spine. 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 IMPRESSION: 1. Acute nondisplaced fracture of the left lateral iliac bone 2. Acute fractures of the left 6th, 7th and 8th lateral ribs. The ribs are not entirely included in t he scan range. 3. Multiple sclerotic osseous lesions suspicious for metastatic disease. Please correlate with clinic al history. 4. Bibasilar subsegmental atelectasis and small bilateral pleural effusions. 5. Extensive atherosclerosis and a 4.1 cm infrarenal abdominal aortic aneurysm. 6. No evidence of solid organ injury.
[2018-11-09 20:29] LABS: Bilirubin,Urine NEG (Negative); Blood,Urine NEG (Negative); Color,Urine Yellow (Yellow); Mucus,Urine FEW /HPF; Protein,Urine <15 mg/dL mg/dL (Negative); Urobilinogen,Urine < 2.0 mg/dL (<2.0)
[2018-11-09 20:53] VITALS: BP 104/62
[2018-11-09] MEDS ORDERED: MORPHINE ONE (21:28)
[2018-11-09] MEDS ORDERED: ZOFRAN ONE (21:28)
--- NOTE | 2018-11-09 22:06 | XRay Report ---
FINAL REPORT EXAM: XR RIBS UNI W PA CHEST 3+V LT HISTORY: rib fractures, fall TECHNIQUE: Multiple views of the ribs PRIORS: None. FINDINGS: There are multiple old bilateral rib fractures. There is no evidence of acute fracture. There is mult ilevel degenerative disc disease of the lower thoracic spine. 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 The cardiomedia stinal silhouette appears normal. The visualized lung owens are clear. The soft tissues are unremark able IMPRESSION: No evidence of acute rib fracture Multiple old bilateral rib fractures
== END 2018-11-09 21:57 | disposition other institution (70) ==
LOC: ED 16:39
DX: S42.202A Unspecified fracture of upper end of left humerus, initial encounter for closed fracture (principal); S32.302A Unspecified fracture of left ilium, initial encounter for closed fracture; S22.42XA Multiple fractures of ribs, left side, initial encounter for closed fracture; I10 Essential (primary) hypertension; E78.00 Pure hypercholesterolemia, unspecified; Z87.442 Personal history of urinary calculi; Z95.1 Presence of aortocoronary bypass graft; Z90.49 Acquired absence of other specified parts of digestive tract; W18.30XA Fall on same level, unspecified, initial encounter; Y93.89 Activity, other specified; Y92.89 Other specified places as the place of occurrence of the external cause; Y99.8 Other external cause status
CPT/HCPCS: 29505; 36415; 71101; 72170; 73060; 73110; 73130; 73552; 73590; 74177; 80048; 81001; 82550; 85007; 85025; 96374; 96375; 96376; 99285; J2270; J2405; Q9967